=== PATIENT | female | born 1990 | race African-American/Black ===

== ENCOUNTER 2020-02-01 14:12 | Emergency (ER) | payer OTHER ==
[~2020-02-01] VITALS: Ht 190.5 cm; Wt 89.0 kg
[2020-02-01] MEDS ORDERED: METOCLOPRAMIDE INJ 10MG/2ML VIAL (J2765 PER 1) IV ONE (14:45)
[2020-02-01] MEDS ORDERED: NS 1,000 ML IV ONE (14:45)
[2020-02-01 15:13] LABS: BASO % 0.5 % (0.0-1.0); EOS # 0.2 10^3/uL (0.0-0.5); EOS % 2.9 % (0.0-3.0); HEMATOCRIT 39.6 % (36.0-47.0); HEMOGLOBIN 13.2 g/dl (12.0-15.5); MEAN CORPUSCULAR HEMOGLOBIN 27.1 pg (27.0-33.0); MEAN CORPUSCULAR HGB CONC 33.3 g/dl (32.0-36.5); MEAN CORPUSCULAR VOLUME 81.3 fl (80.0-96.0); MONO # 0.6 10^3/uL (0.0-0.8); MONO % 8.5 % (0.0-5.0); NEUTROPHILS # 4.6 10^3/uL (1.5-8.5); NEUTROPHILS % 60.8 % (36.0-66.0); PLATELET COUNT, AUTOMATED 299 10^3/uL (150-450); RED BLOOD COUNT 4.87 10^6/uL (4.00-5.40); WHITE BLOOD COUNT 7.5 10^3/uL (4.0-10.0)
[2020-02-01 16:03] LABS: BLOOD UREA NITROGEN 8 MG/DL (7-18); CALCIUM LEVEL 9.4 MG/DL (8.5-10.1); CARBON DIOXIDE LEVEL 26 MEQ/L (21-32); CHLORIDE LEVEL 103 MEQ/L (98-107); CREATININE FOR GFR 0.63 MG/DL (0.55-1.30); GLOMERULAR FILTRATION RATE > 60.0 (>60); GLUCOSE, FASTING 86 MG/DL (70-100); HCG, SERUM QUANTITATIVE 103690 MIU/ML; POTASSIUM SERUM 3.4 MEQ/L (3.5-5.1); SODIUM LEVEL 134 MEQ/L (136-145)
[2020-02-01] MEDS ORDERED: REGL10TA6 PO (16:42)
[2020-02-01] MEDS ORDERED: KEFL500C17 PO (16:42)
[2020-02-01 16:49] VITALS: BP 121/67
== END 2020-02-01 16:51 | disposition home or self-care (01) ==
LOC: M ED 14:12
DX: O23.40 Unspecified infection of urinary tract in pregnancy, unspecified trimester (principal); O21.0 Mild hyperemesis gravidarum; Z3A.00 Weeks of gestation of pregnancy not specified; Z79.899 Other long term (current) drug therapy
CPT/HCPCS: 80048; 81001; 84702; 85025; 87088; 96361; 96374; 99284; J2765

== ENCOUNTER 2020-02-10 13:19 | Emergency (ER) | payer OTHER ==
[~2020-02-10] VITALS: Ht 188 cm; Wt 84.7 kg
[~2020-02-10 13:19] MED LIST: KEFL500C17 PO; REGL10TA6 PO
[2020-02-10 13:20] VITALS: BP 124/82
[2020-02-10] MEDS ORDERED: METOCLOPRAMIDE INJ 10MG/2ML VIAL (J2765 PER 1) IV ONE (14:30)
[2020-02-10] MEDS ORDERED: NS 1,000 ML IV ONE (14:30)
[2020-02-10 15:05] LABS: BASO % 0.6 % (0.0-1.0); EOS # 0.2 10^3/uL (0.0-0.5); HEMATOCRIT 41.3 % (36.0-47.0); HEMOGLOBIN 13.8 g/dl (12.0-15.5); LYMPH # 2.1 10^3/uL (1.5-5.0); LYMPH % 28.8 % (24.0-44.0); MEAN CORPUSCULAR HEMOGLOBIN 26.7 pg (27.0-33.0); MEAN CORPUSCULAR HGB CONC 33.4 g/dl (32.0-36.5); MONO # 0.7 10^3/uL (0.0-0.8); MONO % 9.2 % (0.0-5.0); NEUTROPHILS # 4.2 10^3/uL (1.5-8.5); NEUTROPHILS % 58.1 % (36.0-66.0); PLATELET COUNT, AUTOMATED 295 10^3/uL (150-450); RED BLOOD COUNT 5.16 10^6/uL (4.00-5.40); WHITE BLOOD COUNT 7.3 10^3/uL (4.0-10.0)
--- NOTE | 2020-02-10 15:29 | ECGEPIP ---
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
--- NOTE | 2020-02-10 15:29 | REPVR ---
PROCEDURE INFORMATION: Exam: US First Trimester, Transabdominal Exam date and time: 02/10/2020 2:59 PM Age: 29 years old Clinical indication: LMP or gestational age (in weeks): 10w5d; Antepartum complications; Other: Vomiting; ; Additional info: Nausea, vomiting, , abdominal pain TECHNIQUE: Imaging protocol: Real-time transabdominal obstetrical ultrasound of the maternal pelvis and a first trimester , less than 14 weeks 0 days, with image documentation. COMPARISON: No relevant prior studies available. FINDINGS: Gestation: A gestational sac is present within the uterine body endometrium. A single pole is present within the gestational sac. A yolk sac is present within the gestational sac. Embryonic/ heart rate: heart rate measures 170 beats/min. Placenta: Unremarkable. No subchorionic hemorrhage. Amniotic fluid: Amniotic fluid is normal for gestational age. BIOMETRY: Gestational age (AUA): 10 weeks 6 days Estimated due date (AUA): 09/01/2020 Captiva-Rump length: 39 mm MATERNAL: Uterus: Unremarkable. Cervix: Unremarkable. Right adnexa: The right ovary measures 1.8 x 2.4 x 1.8 cm. The right ovary demonstrates color Doppler blood flow. The right ovary demonstrates spectral Doppler blood flow with low resistance waveforms. No right adnexal mass. No evidence of right ovarian torsion. Left adnexa: The left ovary measures 4.9 x 6.1 x 3.1 cm. The left ovary demonstrates color Doppler blood flow. The left ovary demonstrates spectral Doppler blood flow with low resistance waveforms. The left ovary contains a 2 x 2.1 x 1.8 cm ovoid mildly heterogeneous hypoechoic cystic-appearing structure. No evidence of left ovarian torsion. Intraperitoneal space: No free intraperitoneal fluid. IMPRESSION: 1. Single viable intrauterine with estimated gestational age by ultrasound of 10 weeks 6 days. 2. Nonspecific left ovarian 2.8 cm cystic structure, probably a corpus luteum. Electronically signed by: Ender García On 02/10/2020 15:29:18 PM
[2020-02-10 16:15] LABS: AMPHETAMINES LEVEL URINE NEGATIVE (NEGATIVE); BARBITURATES URINE NEGATIVE (NEGATIVE); BENZODIAZEPINES URINE NEGATIVE (NEGATIVE); CANNABINOIDS URINE NEGATIVE (NEGATIVE); COCAINE METABOLITE URINE NEGATIVE (NEGATIVE); METHADONE URINE NEGATIVE (NEGATIVE); OPIATES URINE NEGATIVE (NEGATIVE); PHENCYCLIDINE URINE NEGATIVE (NEGATIVE)
[2020-02-10 17:44] LABS: ALBUMIN 4.3 GM/DL (3.2-5.2); ALT/SGPT 15 U/L (12-78); BILIRUBIN,DIRECT 0.3 MG/DL (0.0-0.2); BILIRUBIN,TOTAL 1.6 MG/DL (0.2-1.0); BLOOD UREA NITROGEN 9 MG/DL (7-18); CALCIUM LEVEL 9.8 MG/DL (8.5-10.1); CARBON DIOXIDE LEVEL 28 MEQ/L (21-32); CHLORIDE LEVEL 99 MEQ/L (98-107); CK-MB VALUE MASS < 1.0 NG/ML (<3.6); CPK CREATINE PHOSPHOKINASE 96 U/L (26-192); CREATININE FOR GFR 0.72 MG/DL (0.55-1.30); GLOMERULAR FILTRATION RATE > 60.0 (>60); GLUCOSE, FASTING 93 MG/DL (70-100); HCG, SERUM QUANTITATIVE 118685 MIU/ML; LIPASE 419 U/L (73-393); MB/CK RELATIVE INDEX 1.04 (< OR =4); SODIUM LEVEL 134 MEQ/L (136-145); TOTAL PROTEIN 8.9 GM/DL (6.4-8.2); TROPONIN I < 0.02 NG/ML (< 0.10)
[2020-02-10] MEDS ORDERED: UNIS25TA3 PO (18:01)
[2020-02-10] MEDS ORDERED: PREN29CH2 PO (18:01)
[2020-02-10] MEDS ORDERED: PYRI25TA2 PO (18:01)
== END 2020-02-10 18:30 | disposition home or self-care (01) ==
LOC: M ED 13:19
DX: O21.0 Mild hyperemesis gravidarum (principal); O99.281 Endocrine, nutritional and metabolic diseases complicating pregnancy, first trimester; O34.81 Maternal care for other abnormalities of pelvic organs, first trimester; Z3A.10 10 weeks gestation of pregnancy; Z79.899 Other long term (current) drug therapy
CPT/HCPCS: 76801; 80048; 80076; 80307; 81001; 82550; 82553; 83690; 84484; 84702; 85025; 87086; 93005; 93976; 96361; 96374; 99284; J2765

== ENCOUNTER → 2020-03-12 | Outpatient (REF) | payer OTHER ==
[~2020-03-12] MED LIST changes: +PREN29CH2 PO; +PYRI25TA2 PO; +UNIS25TA3 PO
[2020-03-12 12:10] LABS: HEMATOCRIT 35.2 % (36.0-47.0); HEMOGLOBIN 11.3 g/dl (12.0-15.5); MEAN CORPUSCULAR HEMOGLOBIN 26.5 pg (27.0-33.0); MEAN CORPUSCULAR HGB CONC 32.1 g/dl (32.0-36.5); MEAN CORPUSCULAR VOLUME 82.4 fl (80.0-96.0); PLATELET COUNT, AUTOMATED 291 10^3/uL (150-450); RED BLOOD COUNT 4.27 10^6/uL (4.00-5.40); WHITE BLOOD COUNT 5.5 10^3/uL (4.0-10.0)
[2020-03-12 13:30] LABS: HEPATITIS C VIRUS ABY INDEX 0.1 INDEX (<0.8); HIV 1&2 SCREEN CENTAUR NEGATIVE (NEGATIVE)
[2020-03-16 16:06] LABS: HEMOGLOBIN A 97.1 % (96.4-98.8); HEMOGLOBIN A2 2.2 % (1.8-3.2); HEMOGLOBIN F (FETAL) 0.7 % (0.0-2.0); HGB SOLUBILITY Negative (Negative)
== END ==
LOC: M LAB REF 11:23
PROVIDERS: ATTEND Advanced Practice Midwife
DX: Z34.81 Encounter for supervision of other normal pregnancy, first trimester (principal); Z3A.00 Weeks of gestation of pregnancy not specified

== ENCOUNTER → 2020-04-27 | Outpatient (CLI) | payer OTHER ==
--- NOTE | 2020-04-27 15:27 | REP ---
INDICATION: ANATOMY 19 WEEKS. COMPARISON: 02/10/2020. TECHNIQUE: Real-time sonographic evaluation of the gravid uterus performed. FINDINGS: Estimated gestational age is21 weeks 6 days, EDC 09/01/2020. Today's measurements indicate appropriate growth. Presentation: Transverse Placenta posterior, grade 1, without evidence of placenta previa. heart rate is recorded at 150 beats per minute. Amniotic fluid is subjectively normal. Closed cervical length is measured at 6.0 cm. Biometry chart: BPD: 50 mm, 21 weeks days, 28th percentile. HC: mm, 21 weeks 3 days, 36th percentile AC: 171 mm, 22 weeks 0 days, 53rd percentile Femur length: 40 mm, 22 weeks 6 days, 75th percentile HC to AC ratio: 1.13, normal range 1.05-1.24. Estimated weight: For 490g, 63rd percentile. anatomy: Cranium: Grossly normal Lateral Ventricles/Choroid Plexus: Grossly normal Posterior Fossa/Cerebellum: Grossly normal Nose/lips/profile: Grossly normal Four chamber heart: Grossly unremarkable except for a tiny echogenic focus likely related to chordae tendineae. Right ventricular outflow tract: Grossly normal Left ventricular outflow tract: Grossly normal Left-sided stomach: Grossly normal Kidneys: Grossly normal Bladder: Grossly normal Cord Insertion: Grossly normal 3 vessel cord: Grossly normal Spine: Grossly normal IMPRESSION: Viable single intrauterine gestation as above. <Electronically signed by Ryan Rizo > 04/27/20 [id number]
== END ==
LOC: M RAD 13:40
PROVIDERS: ATTEND Advanced Practice Midwife
DX: Z34.02 Encounter for supervision of normal first pregnancy, second trimester (principal); Z3A.21 21 weeks gestation of pregnancy

== ENCOUNTER → 2020-06-22 | Outpatient (CLI) | payer OTHER ==
[2020-06-22 11:20] LABS: HEMATOCRIT 32.9 % (36.0-47.0); HEMOGLOBIN 10.5 g/dl (12.0-15.5); MEAN CORPUSCULAR HEMOGLOBIN 28.5 pg (27.0-33.0); MEAN CORPUSCULAR HGB CONC 31.9 g/dl (32.0-36.5); MEAN CORPUSCULAR VOLUME 89.2 fl (80.0-96.0); PLATELET COUNT, AUTOMATED 263 10^3/uL (150-450); RED BLOOD COUNT 3.69 10^6/uL (4.00-5.40); WHITE BLOOD COUNT 8.1 10^3/uL (4.0-10.0)
== END ==
LOC: M LAB 09:25
PROVIDERS: ATTEND Advanced Practice Midwife
DX: Z34.82 Encounter for supervision of other normal pregnancy, second trimester (principal); Z3A.00 Weeks of gestation of pregnancy not specified

== ENCOUNTER → 2020-06-29 | Outpatient (CLI) | payer OTHER ==
--- NOTE | 2020-06-30 04:09 | REP ---
INDICATION: F/U ANATOMY COMPARISON: 04/27/2020 TECHNIQUE: Transabdominal obstetrical ultrasound with color Doppler evaluation. FINDINGS: Examination demonstrates a single live intrauterine in cephalic presentation. motion is identified by technologist. Placenta is noted posterior and grade 2 without evidence for placenta previa or abruption. Amniotic fluid volume is normal. Cervix measures 3.8 cm in length and appears closed.. Gestational age by LMP 30 weeks 6 days with BETHEL 09/01/2020. Gestational age by current measurements 31 weeks 3 days with BETHEL 08/28/2020. FHR equals 153 beats per minute. LEAH: 9.9 cm Estimated weight 1767 grams (58thpercentile). Umbilical artery 1 SD ratio: 3.70 (1.90-4.00) Anatomical assessment again demonstrates 6.6 mm intracardiac echogenic focus likely prominent chordae tendineae. Remainder of the visualized anatomical structures appear normal. IMPRESSION: Single live advanced gestation in cephalic presentation demonstrating appropriate interval growth. Echogenic intracardiac focus unchanged. <Electronically signed by Ruben Barrera > 06/30/20 [id number]
== END ==
LOC: M RAD 10:49
PROVIDERS: ATTEND Advanced Practice Midwife
DX: Z34.82 Encounter for supervision of other normal pregnancy, second trimester (principal); Z36.2 Encounter for other antenatal screening follow-up; Z3A.30 30 weeks gestation of pregnancy

== ENCOUNTER → 2020-07-29 | Outpatient (REF) | payer OTHER | LOC: M LAB REF 17:02 | PROVIDERS: ATTEND Obstetrics & Gynecology | DX: Z34.83 Encounter for supervision of other normal pregnancy, third trimester (principal) ==

== ENCOUNTER 2020-09-03 02:44 | Inpatient (IN) | payer OTHER ==
[~2020-09-03] VITALS: Ht 185.4 cm; Wt 93.0 kg
[2020-09-03] MEDS ORDERED: OXYTOCIN 30 UNITS IN 0.9% NaCl 500ML IV BAG (J2590) As Ordered ONE (02:55)
[2020-09-03 03:06] LABS: HEMATOCRIT 40.1 % (36.0-47.0); HEMOGLOBIN 13.6 g/dl (12.0-15.5); MEAN CORPUSCULAR HEMOGLOBIN 28.8 pg (27.0-33.0); MEAN CORPUSCULAR HGB CONC 33.9 g/dl (32.0-36.5); PLATELET COUNT, AUTOMATED 267 10^3/uL (150-450); RED BLOOD COUNT 4.72 10^6/uL (4.00-5.40); WHITE BLOOD COUNT 9.6 10^3/uL (4.0-10.0)
[2020-09-03] MEDS ORDERED: LIDOCAINE 1% MDV 20ML VIAL As Ordered ONE (03:18)
[2020-09-03 03:26] VITALS: BP 139/68
[2020-09-03 03:38] VITALS: BP 140/72
[2020-09-03] MEDS ORDERED: IRON1TAB2 PO (03:39)
[2020-09-03 03:53] VITALS: BP 131/73
[2020-09-03] MEDS ORDERED: DOCUSATE SODIUM 100MG CAPSULE PO PRN (03:55)
[2020-09-03] MEDS ORDERED: METHYLERGONOVINE MALEATE 0.2 MG TAB PO PRN (03:55)
[2020-09-03] MEDS ORDERED: ACETAMINOPHEN 500 MG TAB PO PRN (03:55)
[2020-09-03] MEDS ORDERED: ACETAMINOPHEN TAB 650MG DOSE (2X325MG) PO PRN (03:55)
[2020-09-03] MEDS ORDERED: ANUSOL HC CREAM 30GM TOP PRN (03:55)
[2020-09-03] MEDS ORDERED: IBUPROFEN 600MG TAB PO PRN (03:55)
[2020-09-03] MEDS ORDERED: OXYTOCIN DRIP 30 UNITS in IV 1 EA IV SCH (03:55)
[2020-09-03] MEDS ORDERED: RHOGAM 300 MCG (1500 IU) INJ (J2790) IM SCH (03:55)
[2020-09-03] MEDS ORDERED: MOM 30ML SUSPENSION UDC PO PRN (03:55)
[2020-09-03] MEDS ORDERED: LIDOCAINE 1% MDV 20ML VIAL INFIL ONE (03:55)
[2020-09-03] MEDS ORDERED: MEASLES,MUMPS,RUBELLA VACCINE INJ (MMR-II) (90707) SC SCH (03:55)
--- NOTE | 2020-09-03 04:03 | HPEPDOC ---
Obstetrical History & Physical General Date of Admission Sep 03, 2020 at 02:59 History of Present Illness 30-year-old 2 para 1 presents at 39 weeks 2 days estimated gestational age with complaints of contractions. She reports active movements and denies any vaginal bleeding or leakage of fluid. This is a patient who's been followed at [facility]. Care has been appropriate. Chief Complaint: Contractions, term Information Provided By: Patient Age: 30 : 2 Livin Care Care: Good Care Dating Final EDC: Sep 08, 2020 Final EDC by: LMP Past Medical History Past Obstetrical History : Past Obstetrical History: Multigravida Type of Delivery: Spontaneous Vaginal Del. Sex of : Male Complications: No [employer] CHIEF History: No pertinent history Past Medical History Surgical History: Denies/None Family History Significant Family History: No pertinent family hx Social History Marital Status: Family situation: Spouse/partner home Psychosocial History: No pertinent psych hx * Smoker: non-smoker Alcohol: Denies Drugs: denies Allergies Coded Allergies: No Known Drug Allergies (Verified Allergy, Unknown, 02/01/20) Medications Scheduled Ferrous Sulfate (Iron) 325 Mg Tablet, 1 TAB PO DAILY No115/Iron/Folic Acid ( 19 Chewable Tablet) 1 Each Tab.chew, 1 TAB PO DAILY Physical Examination Physical Examination GENERAL: Alert and oriented times three. BREAST: . ABDOMEN: Gravid and non-tender to touch. FETUS: Is vertex (VTX) by sterile vaginal examination (SVE), fetus is vertex (VTX) by Jose. HEART RATE: Regular rate and rhythm. LUNGS: Clear to auscultation (CTA). Vital Signs/I&O Vital Signs Date Time Temp Pulse Resp B/P (MAP) Pulse Ox O2 Delivery O2 Flow Rate FiO2 09/03/20 03:26 98.8 88 139/68 (91) Laboratory Data 24H LABS Laboratory Tests 2 09/03/20 02:51: Nucleated Red Blood Cells % (auto) 0.0 09/03/20 03:01: Serology Scanned Report Hepatitis B Testing CBC/BMP Laboratory Tests 09/03/20 02:51 Pertinent Laboratoy Data Blood Type: AB+ RBC Antibody Screen: Negative HIV: Negative Hepatitis B: Negative Hepatitis C: Negative Rapid Plasma Reagin: Nonreactive Rubella: Immune Chlamydia/Gonorrhea: Negative Group B Streptococcus: Negative Vaginal Examination Dilation: 8 cm Effacement: 100% Station: 0 Cervical Consistency: Soft Cervical Position: Middle Presentation: Cephalic presentation Assessment Variability: Moderate Accelerations: Positive Tocometer Contractions: Yes Frequency: regular, every 2-5 min. Assessment/Plan Assessment 30-year-old 2 para 1 at 39 weeks and 2 days in active labor Reassuring status Plan Admit and orient. [employer] and consent. Group B Streptococcus (GBS) negative. Labs and intravenous (IV) per unit protocol. Counseled on Pitocin and induction of labor (IOL). Anticipate normal spontaneous delivery (). C-S as appropriate. TRAVON GUZMAN MD. Sep 03, 2020 04:03
[2020-09-03 04:08] VITALS: BP 131/74
--- NOTE | 2020-09-03 04:08 | DNPDOC ---
[facility] Delivery Note Delivery Note DATE OF DELIVERY: 09/03/2020 TIME OF : 0317 GENDER: Female APGARS: 7 and 9 WEIGHT: 3730 grams or 8 pounds 4ounces. LACERATIONS: 2MLL ANESTHESIA: none ESTIMATED BLOOD LOSS: 300ml COUNTS: 5 laparotomy sponges accounted for prior to after delivery. 2 sharps removed from delivery field. DELIVERY NOTE: On 09/03/2020 at 0 317 this patient is a 30-year-old 2 now para 2 with spontaneous vaginal delivery of a liveborn female 7 and 9 weight was 3730 g or 8 lbs. 4 oz. Head was delivered occiput anterior (OA), followed by delivery of the shoulders and corpus. Infant was handed to mom with a good cry. Cord was clamped times two and was cut by support person under my direction. Placenta was then drained and delivered grossly intact. A premixed bag of 500 mL of normal saline with 30 units of Pitocin was then bolused along with uterine massage until the uterus was firm. On inspection there was a 2MLL that was repaired with 3-0 Vicryl after infusion with 1% lidocaine. On reinspection, cervix, vagina, perineum was grossly intact and hem ostatic. Mom and baby in recovery on stable condition. TRAVON GUZMAN MD. Sep 03, 2020 04:08
[2020-09-03] MEDS: IBUPROFEN 800 MG TAB PO PRN (04:09)
[2020-09-03] MEDS ORDERED: LR 1,000 ML IV ONE (04:20)
[2020-09-03 06:00] VITALS: BP 130/85
[2020-09-03] MEDS: PRENATAL VITAMINS CHEWABLE TABLET PO SCH (09:20)
[2020-09-03 18:00] VITALS: BP 131/75
[2020-09-03] MEDS: DIBUCAINE 1% OINTMENT 30GM TOP PRN (20:01)
[2020-09-04 06:00] VITALS: BP 111/69
--- NOTE | 2020-09-04 06:52 | IPNPDOC ---
Text Note Date of Service The patient was seen on 09/04/20. NOTE PP #1 Feels well. . Adequate pain management. Voiding QS VSS, afebrile, normotensive Breasts soft,nipples intact Fundus firm, NT, down 1 FB Lochia rubra light without odor Perineum intact PP #1 Routine care. Anticipate D/C in am VS,Fishbone, I+O VS, Fishbone, I+O Vital Signs Date Time Temp Pulse Resp B/P (MAP) Pulse Ox O2 Delivery O2 Flow Rate FiO2 09/04/20 06:00 97.4 69 18 111/69 (83) 09/03/20 18:00 100 Room Air Lachelle Alba CNM Sep 04, 2020 06:52
[2020-09-04] MEDS: IBUPROFEN 800 MG TAB PO PRN (08:26)
[2020-09-04] MEDS: PRENATAL VITAMINS CHEWABLE TABLET PO SCH (13:01)
[2020-09-04] MEDS ORDERED: ACET1TAB55 PO (13:42)
[2020-09-04] MEDS ORDERED: IBUP80TA PO (13:42)
[2020-09-04] MEDS: DIBUCAINE 1% OINTMENT 30GM TOP PRN (13:45)
== END 2020-09-04 15:35 | disposition home or self-care (01) | DRG 807 ==
LOC: M LDO 02:44 → M LDI 02:59 → M OBS 05:50
PROVIDERS: ADMIT Obstetrics & Gynecology; ATTEND Obstetrics & Gynecology
PROC: 10E0XZZ Delivery of Products of Conception, External Approach (ICD-10-PCS; principal; 2020-09-03)
PROC: 0KQM0ZZ Repair Perineum Muscle, Open Approach (ICD-10-PCS; 2020-09-03)
DX: O70.1 Second degree perineal laceration during delivery (principal); Z37.0 Single live birth; Z3A.39 39 weeks gestation of pregnancy

== ENCOUNTER 2021-05-17 15:02 | Emergency (ER) | payer OTHER ==
[~2021-05-17] VITALS: Ht 185.4 cm; Wt 103.1 kg
[~2021-05-17 15:02] MED LIST changes: +ACET1TAB55 PO; +IBUP80TA PO; +IRON1TAB2 PO
[2021-05-17 15:03] VITALS: BP 123/69
[2021-05-17] MEDS ORDERED: LOPE-39 PO (15:30)
== END 2021-05-17 19:53 | disposition left against medical advice (07) ==
LOC: M ED 15:02
DX: Z53.21 Procedure and treatment not carried out due to patient leaving prior to being seen by health care provider (principal)